=== PATIENT | male | born 1995 | race Caucasian/White ===

== ENCOUNTER 2024-09-29 22:17 | Emergency (ER) | payer SELFPAY ==
[2024-09-29 22:20] VITALS: BP 176/115; PULSE 85; TEMP 36.9; O2SAT 99; BMI 38.7
[2024-09-29] MEDS: TRIAMCINOLONE ACETONIDE 40 MG/ML VIAL IM (22:51)
[2024-09-29 22:53] VITALS: BP 177/113; PULSE 91; O2SAT 96
--- NOTE | 2024-09-29 23:26 | ED_ITS ---
HPI HPI - General Adult General Chief complaint: Allergic Reaction Stated complaint: rash Time Seen by Provider: 09/29/24 22:20 Source: patient Mode of arrival: walk-in Limitations: no limitations History of Present Illness HPI narrative: 29-year-old male to the emergency department chief complaint of allergic reaction. Patient reports that he was on amoxicillin, finished 4 days ago for an upper respiratory infection. He reports that he has since developed a pruritic rash worse on his trunk but also on his extremities. He has no other symptoms. Otherwise at baseline health. Related Data Home Medications ?Medication ?Instructions ?Recorded ?Confirmed sertraline 50 mg tablet mg 09/29/24 Allergies Allergy/AdvReac Type Severity Reaction Status Date / Time Penicillins Allergy Mild Rash Verified 09/29/24 22:42 clementines Allergy Intermediate Rash Uncoded 09/29/24 22:26 Opioid HPI Opioid Management Most Recent Opioid Data: No Data to Display Review of Systems ROS Status of ROS 10 or more systems reviewed and unremark able except as noted in history and below PFSH PFSH Social History Little interest or pleasure in doing things: not at all Feeling down, depressed, or hopeless: not at all Exam Narrative Exam Narrative: VITALS: I have reviewed the triage vital signs. GENERAL: Well developed, well appearing adult in no acute distress. NEURO: Alert and oriented. Moves all extremities. Face is symmetric and expressive. EYES: PERRL. No scleral icterus or conjunctival injection. No discharge. HENT: Normocephalic, atraumatic. Hearing is grossly intact. Nares grossly patent and without discharge. Mucous membranes moist. NECK: No JVD. Patient moves neck without restriction. CARDIO: Rhythm regular. Normal rate. No murmur, rub, or gallop. Pulses equal bilaterally in the upper and lower extremity. No lower extremity edema. PULM: Lungs clear to auscultation in all yu. No wheezes, rales, or rhonchi. No conversational dyspnea. No splinting, stridor, or accessory muscle use. GI/: Abdomen is soft and non-tender. Normoactive bowel sounds. EXTREMITIES: Symmetric muscle bulk. No joint swelling. No clubbing, cyanosis, or deformity. SKIN: Diffuse maculopapular rash. Warm and dry. No petechia, purpura, bullae, sloughing, mucous membrane involvement. No palm or sole involvement. PSYCH: Mood, affect, and interaction is appropriate to the setting. Constitutional Vital Signs, click to edit/add: Last Vital Signs Temp 98.5 F 09/29/24 22:20 Pulse 91 H 09/29/24 22:53 Resp 18 09/29/24 22:53 BP 177/113 H 09/29/24 22:53 Pulse Ox 96 09/29/24 22:53 O2 Del Method Room Air 09/29/24 22:53 Course Vital Signs Vital signs: Vital Signs Temperature 98.5 F 09/29/24 22:20 Pulse Rate 85 09/29/24 22:20 Respiratory Rate 18 09/29/24 22:20 Blood Pressure 176/115 H 09/29/24 22:20 Pulse Oximetry 99 09/29/24 22:20 Oxygen Delivery Method Room Air 09/29/24 22:20 Temperature 98.5 F 09/29/24 22:20 Pulse Rate 91 H 09/29/24 22:53 Respiratory Rate 18 09/29/24 22:53 Blood Pressure 177/113 H 09/29/24 22:53 Pulse Oximetry 96 09/29/24 22:53 Oxygen Delivery Method Room Air 09/29/24 22:53 Medical Decision Making MDM Narrative Medical decision making narrative: Well-appearing 29-year-old male with maculopapular rash after amoxicillin course. No other exposures. vital stable, the patient is afebrile. No signs of SJS/TEN. No petechia or purpura. No signs of dangerous rash. Suspect fixed drug eruption. Recommended he not take penicillin derivatives. He is okay for cephalosporins in the future. Kenalog shot is given. He will continue his antihistamines at home for itching. Return precautions were discussed. All questions were answered. The patient was discharged home. Medical Records Medical records reviewed: Yes I reviewed the patient's medical records Discharge Plan Discharge Chief Complaint: Allergic Reaction Clinical Impression: Allergic reaction, Adverse reaction to drug Patient Disposition: Home, Self-Care Time of Disposition Decision: 22:43 Condition: Good Prescriptions / Home Meds: No Action sertraline 50 mg tablet Print Language: Faroese Instructions: Acute Rash (ED), Antibiotic Medication Allergy (ED) Additional Instructions: Call the office of your primary care doctor to arrange for follow-up within the above-stated timeframe. Your ED visit was focused on your acute issue and does not replace primary care. You should review your labs, imaging, and diagnoses from this ED visit with your primary care physician. There may be non-emergent/ incidental findings that need further evaluation. You should review your vital signs including blood pressure with your PCP. If you were prescribed medications you should discuss possible side-effects and drug interactions with your pharmacist. Call 911 or go to the nearest Emergency Department if you develop any new or worsening symptoms. Referrals: Physician,Non-Staff, MD [Primary Care Provider] - 1 week Discharge Date/Time: 09/29/24 22:53
== END 2024-09-29 22:53 | disposition home or self-care (01) ==
PROVIDERS: Emergency Provider Student in an Organized Health Care Education/Training Program
DX: L27.0 Generalized skin eruption due to drugs and medicaments taken internally (principal); T36.0X5A Adverse effect of penicillins, initial encounter
CPT/HCPCS: 96372; 99284; J3301